=== PATIENT | female | born 1955 | race Asian ===

== ENCOUNTER 2018-05-18 08:59 | Inpatient (IN) | payer OTHER, MEDICARE ==
[2018-05-18] MEDS: DEXAMETHASONE 1 MG TAB PO (10:00)
[2018-05-18] MEDS ORDERED: BUPIVACAINE 0.5% (SDV) 30 ML, morphine SULFATE (PF) 8 MG, EPINEPHrine 0.3 MG, KETOROLAC... IRR (10:00)
[2018-05-18] MEDS: GABAPENTIN 300 MG CAP PO ×2 (10:00→21:34)
[2018-05-18] MEDS ORDERED: MIDAZOLAM 1 MG/ML 2 ML INJ (10:38)
[2018-05-18] MEDS ORDERED: CEFAZOLIN 1 GM INJ (10:38)
[2018-05-18] MEDS ORDERED: FENTAnyl 50 MCG/ML VIAL (10:38)
[2018-05-18] MEDS ORDERED: GLYCOPYRROLATE 0.4 MG INJ (10:38)
[2018-05-18] MEDS ORDERED: PROPOFOL 20 ML (10:38)
[2018-05-18] MEDS ORDERED: NEOSTIGMINE 3 MG/3 ML SYRINGE (10:38)
[2018-05-18] MEDS ORDERED: ROCURONIUM 50 MG INJ (10:38)
[2018-05-18] MEDS ORDERED: ONDANSETRON 4 MG INJ (10:39)
[2018-05-18] MEDS ORDERED: ROPIVACAINE 0.5 % 30 ML VIAL (10:39)
[2018-05-18] MEDS ORDERED: DEXAMETHASONE 4 MG/ML 1 ML INJ (10:39)
[2018-05-18] MEDS ORDERED: ONDANSETRON 4 MG INJ IV (12:30)
[2018-05-18] MEDS ORDERED: IPRATROPIUM (NEB) 0.5 MG/2.5 ML AMP HHN (12:30)
[2018-05-18] MEDS ORDERED: MIDAZOLAM 1 MG/ML 2 ML INJ IV (12:30)
[2018-05-18] MEDS ORDERED: EPHEDrine SULFATE 50 MG/5 ML SYG IV (12:30)
[2018-05-18] MEDS ORDERED: DIPHENHYDRAMINE 50 MG INJ IV ×2 (12:30→13:30)
[2018-05-18] MEDS ORDERED: LABETALOL HCL 20MG INJ IV (12:30)
[2018-05-18] MEDS ORDERED: MEPERIDINE 25 MG INJ IV (12:30)
[2018-05-18] MEDS ORDERED: TRIMETHOBENZAMIDE 100 MG/ML VIAL IM (12:30)
[2018-05-18] MEDS ORDERED: OXYCODONE/ACETAMINOPHEN (5/325) TAB PO ×4 (12:30→13:30)
[2018-05-18] MEDS ORDERED: HYDROmorphONE 1 MG/5 ML IV SYRINGE IV ×3 (12:30)
[2018-05-18] MEDS ORDERED: FENTAnyl 50 MCG/ML VIAL IV ×3 (12:30)
[2018-05-18] MEDS: TRANEXAMIC ACID 1,000 MG in DEXTROSE 5% 100 ML IVPB (12:30)
[2018-05-18] MEDS ORDERED: ALBUTEROL 0.083% (NEB) 2.5 MG/3 ML AMP HHN (12:30)
[2018-05-18] MEDS ORDERED: CA CHLORIDE 10% 10 ML SYRINGE (12:38)
[2018-05-18] MEDS ORDERED: THROMBIN 5000 UNIT VIAL (12:39)
[2018-05-18] MEDS ORDERED: POLYMYXIN/BACITRACIN 1L IRRIG (12:39)
[2018-05-18] MEDS ORDERED: ZOLPIDEM 5 MG TAB PO (13:30)
[2018-05-18] MEDS ORDERED: MAGNESIUM HYDROXIDE 30ML CUP PO (13:30)
[2018-05-18] MEDS ORDERED: morphine 2 MG INJ IV ×2 (13:30)
[2018-05-18] MEDS ORDERED: KETOROLAC 15 MG INJ IV (13:30)
[2018-05-18] MEDS: hydrALAzine 20 MG INJ IV (14:29)
[2018-05-18] MEDS: TRANEXAMIC ACID 1,000 MG in DEXTROSE 5% 100 ML IV (14:37)
[2018-05-18] MEDS: VANCOMYCIN 1 GM (PMX) 250 ML IVPB (15:27)
[2018-05-18] MEDS: VANCOMYCIN 500MG/NS (PMX) 100 ML IVPB (16:31)
[2018-05-18] MEDS: ONDANSETRON 4 MG INJ IV (16:55)
[2018-05-18] MEDS: DEXAMETHASONE 2 MG TAB PO (18:14)
[2018-05-18] MEDS: SENNA/DOCUSATE NA (8.6MG/50MG) TAB PO (21:34)
[2018-05-18] MEDS: ACETAMINOPHEN 500 MG TAB PO (21:42)
[2018-05-19] MEDS: DEXAMETHASONE 2 MG TAB PO ×3 (00:18→12:06)
[2018-05-19] MEDS: ONDANSETRON 4 MG INJ IV (00:23)
[2018-05-19] MEDS: VANCOMYCIN 500MG/NS (PMX) 100 ML IVPB (01:57)
[2018-05-19] MEDS: ASPIRIN 81 MG TAB PO (09:05)
[2018-05-19] MEDS: ATENOLOL 25 MG TAB PO (09:06)
[2018-05-19] MEDS: LOSARTAN 50 MG TAB PO (09:06)
[2018-05-19] MEDS: SENNA/DOCUSATE NA (8.6MG/50MG) TAB PO (09:06)
[2018-05-19] MEDS: ACETAMINOPHEN 500 MG TAB PO (09:12)
== END 2018-05-19 12:32 | disposition home or self-care (01) | DRG 483 ==
LOC: REC 08:59 → MS1 15:00
PROC: 0RRJ00Z Replacement of Right Shoulder Joint with Reverse Ball and Socket Synthetic Substitute, Open Approach (ICD-10-PCS; principal; 2018-05-18 12:00)
DX: M19.011 Primary osteoarthritis, right shoulder (principal); M75.101 Unspecified rotator cuff tear or rupture of right shoulder, not specified as traumatic; I10 Essential (primary) hypertension; E78.5 Hyperlipidemia, unspecified; Z79.899 Other long term (current) drug therapy
CPT/HCPCS: 73030-RT; 86999; 88304; 88311; 97166